=== PATIENT | female | born 1975 | race African-American/Black ===

== ENCOUNTER 2018-08-21 13:29 | Emergency (ER) | payer OTHER, BC | END 2018-08-21 16:13 | disposition home or self-care (01) | LOC: FTE 13:29 | DX: H65.92 Unspecified nonsuppurative otitis media, left ear (principal); Z21 Asymptomatic human immunodeficiency virus [HIV] infection status | CPT/HCPCS: 99283; Z7502 ==

== ENCOUNTER 2018-08-23 16:21 | Emergency (ER) | payer OTHER ==
[2018-08-23] MEDS: HYDROCODONE/APAP (10/325) TAB PO (17:23)
[2018-08-23] MEDS: PSEUDOEPHEDRINE 30 MG TAB PO (17:36)
[2018-08-23] MEDS: OXYMETAZOLINE 0.05% 15 ML NAS SPRAY NASAL ×2 (17:45)
[2018-08-23 17:58] LABS: MONOTEST Negative (NEG)
[2018-08-23] MEDS: AMOXICILLIN/CLAV 875 MG TAB PO (18:46)
== END 2018-08-23 19:08 | disposition home or self-care (01) ==
LOC: FTE 16:21
DX: H92.02 Otalgia, left ear (principal); F17.210 Nicotine dependence, cigarettes, uncomplicated; Z21 Asymptomatic human immunodeficiency virus [HIV] infection status
CPT/HCPCS: 86308; 87880; 99283